=== PATIENT | female | born 2005 | race Caucasian/White ===

== ENCOUNTER 2025-03-07 11:08 | Emergency (ER) | payer BC ==
[2025-03-07] MEDS: Oxytocin 10 Units/1 ML SDV IM ONE (12:35)
[2025-03-07 12:52] LABS: MEAN PLATELET VOLUME 8.6 fL (7.1-12.4); PLATELET COUNT,PLT 379 x10(3)uL (151-488); RED BLOOD CELL COUNT 4.60 x10(6)uL (3.60-5.20); RED CELL DISTRIBUTION WIDTH 14.3 % (12.3-16.5); WHITE BLOOD CELL COUNT,WBC 18.0 x10-3/uL (3.0-10.3)
[2025-03-07 13:07] LABS: BAND PERCENT MAN 2 % (0-6); LYMPHOCYTES PERCENT MAN 8 % (13-37); MONOCYTES PERCENT MAN 6 % (4-12); SEG NEUTROPHILS PERCENT MAN 84 % (46-82)
[2025-03-07] MEDS: Oxytocin 10 Units/1 ML SDV ONE (19:12)
== END 2025-03-08 01:10 ==
LOC: FB.ED 11:08
DX: Z39.2 Encounter for routine postpartum follow-up (principal)
CPT/HCPCS: 36415; 85025; 85460; 86850; 86900; 86901; 88307; 96372; 99284; J2590; J2791; 36430; 99285